=== PATIENT | female | born 1960 | race Caucasian/White ===

== ENCOUNTER 2017-01-26 08:08 | Inpatient (IN) | payer BC ==
[2017-01-24 16:26] LABS: ADD SCAN DIFF NO
[2017-01-24 16:29] LABS: BASOPHILS % 0.4 % (0.0-2.0); EOSINOPHILS # 0.3 10^3/ul (0.0-0.5); EOSINOPHILS % 3.4 % (0.0-7.0); HEMATOCRIT 41.2 % (37.0-47.0); LYMPHOCYTES % 40.4 % (15.0-51.0); MEAN CORPUSCULAR HEMOGLOBIN 31.5 pg (29.0-33.0); MEAN CORPUSCULAR VOLUME 92.6 fl (82.0-101.0); MONOCYTE # 0.5 10^3/ul (0.3-0.9); MONOCYTES % 6.1 % (0.0-11.0); NEUTROPHIL # 3.6 10^3/ul (1.6-7.5); NEUTROPHILS % 49.6 % (39.0-77.0); PLATELET COUNT 221 10^3/UL (140-415); RED BLOOD COUNT 4.45 10^6/ul (4.20-5.40); RED CELL DISTRIBUTION WIDTH 12.1 % (11.5-14.5); WHITE BLOOD COUNT 7.3 10^3/ul (4.8-10.8)
[2017-01-24 16:36] LABS: ADD UMIC YES; URINE BILIRUBIN (Dip) NEGATIVE (NEGATIVE); URINE BLOOD (Dip) TRACE (NEGATIVE); URINE COLOR LT. YELLOW (YELLOW); URINE GLUCOSE (Dip) NEGATIVE (NEGATIVE); URINE KETONES (Dip) NEGATIVE (NEGATIVE); URINE LEUKOCYTE ESTERASE (Dip) NEGATIVE (NEGATIVE); URINE NITRITE (Dip) NEGATIVE (NEGATIVE); URINE TOTAL PROTEIN (Dip) NEGATIVE (NEGATIVE); URINE UROBILINOGEN (Dip) 0.2 E.U./dL (0.1-1.0)
[2017-01-24 16:42] LABS: ALBUMIN 3.7 g/dl (3.3-4.9)
[2017-01-24 16:43] LABS: POTASSIUM 3.8 mmol/L (3.5-5.1)
[2017-01-24 16:45] LABS: BILIRUBIN,INDIRECT 0.1 mg/dl (0-1.1); BILIRUBIN,TOTAL 0.1 mg/dl (0.2-1.3); CREATININE 0.74 mg/dl (0.44-1.00)
[2017-01-24 16:46] LABS: ALBUMIN/GLOBULIN RATIO 1.12; CALCIUM 9.6 mg/dl (8.4-10.2)
[2017-01-24 16:49] LABS: INR 1.02; PROTIME 13.4 Sec (12.2-14.2)
[2017-01-24 16:50] LABS: PARTIAL THROMBOPLASTIN TIME 30.3 Sec (25.0-35.0)
[2017-01-24 17:04] LABS: BACTERIA,URINE FEW; SQUAMOUS EPITHELIAL CELL,UR FEW; URINE RBCS 0-2 /HPF (0)
[2017-01-24 17:16] LABS: CANCER ANTIGEN 125 77.6 U/ml (0.0-35.0)
[~2017-01-26] VITALS: Ht 167.6 cm; Wt 103.4 kg
[2017-01-26] VITALS (28 sets, daily range): BP systolic 103–189; BP diastolic 54–88; PULSE 16–96; RESP 8–31; Ht 167.6 cm; Wt 103.4 kg
[~2017-01-26 08:08] MED LIST: ROCURONIUM 50 MG INJ ONE
[2017-01-26] MEDS ORDERED: CEFAZOLIN 2 GM/50 ML (PMX) 50 ML IVPB ONE (08:30)
[2017-01-26] MEDS ORDERED: D5-NS + KCL 20 MEQ 1,000 ML IV SCH (08:30)
[2017-01-26] MEDS ORDERED: metroNIDAZOLE 500 MG/NS (PMX) 100 ML IVPB ONE ×2 (08:30→10:09)
--- NOTE | 2017-01-26 09:23 | HPN ---
Date/Time of Note Date/Time of Note DATE: 01/26/17 TIME: 09:23 Interval H&P Admission Note Pt. seen H&P reviewed: No system changes MOSES MAGUIRE MD Jan 26, 2017 09:23
[2017-01-26] MEDS ORDERED: LIDOCAINE 2% (SDV) 5 ML INJ ONE (10:09)
[2017-01-26] MEDS ORDERED: SUCCINYLCHOLINE CHLORIDE 100 MG/5 ML SYG IV ONE (10:09)
[2017-01-26] MEDS ORDERED: CEFAZOLIN 1 GM INJ ONE (10:09)
[2017-01-26] MEDS ORDERED: ROCURONIUM 50 MG INJ ONE (10:09)
[2017-01-26] MEDS ORDERED: MIDAZOLAM 1 MG/ML 2 ML INJ ONE (10:09)
[2017-01-26] MEDS ORDERED: PROPOFOL 20 ML ONE (10:09)
[2017-01-26] MEDS ORDERED: FENTAnyl 50 MCG/ML VIAL ONE (10:09)
[2017-01-26] MEDS ORDERED: FURO20TA3 PO (10:12)
[2017-01-26] MEDS ORDERED: TRAM-40 PO (10:12)
[2017-01-26] MEDS ORDERED: QUET100T32 PO (10:12)
[2017-01-26] MEDS ORDERED: OXYC-279 PO (10:12)
[2017-01-26] MEDS ORDERED: FLUO10CA17 PO (10:12)
[2017-01-26] MEDS ORDERED: LEVOFLOXACIN 500MG/D5W (PMX) 100 ML IVPB STA (11:01)
[2017-01-26] MEDS ORDERED: morphine SULFATE/PF (10 MG/10 ML) INJ ONE (11:08)
[2017-01-26] MEDS ORDERED: METHYLENE BLUE 10 MG/ML VIAL ONE (11:20)
--- NOTE | 2017-01-26 12:03 | HP ---
Date/Time of Note Date/Time of Note DATE: 01/26/17 TIME: 12:02 Assessment/Plan VTE Prophylaxis VTE Prophylaxis Intervention: SCD's Lines/Catheters IV Catheter Type (from Nrs): Peripheral IV HPI/ROS Admit Date/Time Admit Date/Time Jan 26, 2017 at 08:08 Hx of Present Illness Moses Maguire M.D. 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 EMB negative initially and repeat pending and MRI 14 cm mass and a CA-125 79 with enlarged nodes. Past Medical History: Surgical: GB and TL Medical: HTN Medications: 12/01/16 aspirin 81 mg tablet,delayed release 1 tablet by mouth as directed 12/01/16 fluoxetine 10 mg tablet 1 tablet by mouth as directed 12/01/16 furosemide 20 mg tablet 1 tablet by mouth as directed 12/01/16 gabapentin 300 mg capsule 1 capsule by mouth as directed 12/01/16 hydroxyzine HCl 50 mg tablet 1 tablet by mouth as directed 12/01/16 simvastatin 20 mg tablet 1 tablet by mouth as directed Flu yes, , Pneumococcal yes, Colonoscopy: never Allergies: No active allergies recorded Family History: Noncontributory Social History: Noncontributory Review of Systems: Negative except for above noted Physical Examination Vitals (12/01/2016): Weight 234, Height 65.25, BP 128/70, BMI 38.9. General: Alert. HEENT: Pupils are equal, round, reactive to light and accommodation. Neck: Supple with no masses of lymphadenopathy. Breast: Deferred due to recent examination and responsibility of primary care physician. Chest: Clear to auscultation and percussion with no rales, ronchi, or wheeze. Heart: Normal rhythm with no murmur. Abdomen: Non tender. No masses, ascites, or organomegaly. Pelvis: Uterus enlarged and globular with posterior mass Rectal: Confirmatory with pelvic exam. Neurological: Grossly intact Assessment: Probably adenomyosis with obesity vs sarcoma. Plan: TLH/BSO possible LND, possible open. All risks and benefits of this procedure have been discussed in detail with the patient, as well as alternative treatment strategies and their implications. The patient is aware that there is some possibility of a blood transfusion and its associated risks and benefits. She wishes to proceed and gives her informed consent. Moses Maguire M.D. PMH/Family/Social Social History Smoking Status: Never smoker Exam/Review of Systems Vital Signs Vitals Vital Signs Date Time Temp Pulse Resp B/P Pulse Ox O2 Delivery O2 Flow Rate FiO2 01/26/17 09:48 97.6 16 16 149/85 96 Labs Result Diagram: 01/24/17 1615 01/24/17 1615 Medications Medications Current Medications Potassium Chloride/Dextrose/ Sod Cl (D5-NS + KCl 20 Meq) 1,000 ml @ 100 mls/hr Q10H IV ; Start 01/26/17 at 08:30; Stop 01/26/17 at 18:29 MOSES MAGUIRE MD Jan 26, 2017 12:03
[2017-01-26] MEDS ORDERED: PHENYLephrine (100 MCG/ML) 5ML SYG ONE (12:04)
[2017-01-26] MEDS ORDERED: THROMBIN 5000 UNIT VIAL ONE (12:05)
[2017-01-26] MEDS ORDERED: METOCLOPRAMIDE 10 MG INJ ONE (12:20)
[2017-01-26] MEDS ORDERED: DEXAMETHASONE 4 MG/ML 1 ML INJ ONE (12:20)
[2017-01-26] MEDS ORDERED: ONDANSETRON 4 MG INJ ONE ×2 (12:20→16:12)
[2017-01-26] MEDS ORDERED: EPHEDrine SULFATE 50 MG/5 ML SYG ONE (12:28)
[2017-01-26] MEDS ORDERED: KETOROLAC 30 MG INJ IV PRN (13:30)
[2017-01-26] MEDS ORDERED: ONDANSETRON 4 MG INJ IV PRN ×3 (13:30→17:00)
[2017-01-26] MEDS ORDERED: DIPHENHYDRAMINE 50 MG INJ IV PRN ×2 (13:30→14:00)
[2017-01-26] MEDS ORDERED: NALOXONE (0.4 MG/ML) INJ IV PRN (13:30)
[2017-01-26] MEDS ORDERED: HYDROmorphONE 1 MG/ML SYG IV PRN ×2 (13:30)
[2017-01-26] MEDS ORDERED: NALBUPHINE HCL (10 MG/1 ML) INJ IV PRN (13:30)
[2017-01-26] MEDS ORDERED: HYDROCODONE/APAP (5/325) TAB PO PRN (13:30)
[2017-01-26] MEDS ORDERED: TRIMETHOBENZAMIDE 100 MG/ML VIAL IM PRN ×2 (13:30→14:00)
[2017-01-26] MEDS ORDERED: hydrALAzine 20 MG INJ ONE (13:37)
[2017-01-26] MEDS ORDERED: KETOROLAC 30 MG INJ IV ONE (14:00)
[2017-01-26] MEDS ORDERED: hydrALAzine 20 MG INJ IV PRN (14:00)
[2017-01-26] MEDS ORDERED: ALBUTEROL 0.5% (NEB) 2.5 MG/0.5 ML AMP INH PRN (14:00)
[2017-01-26] MEDS ORDERED: FENTAnyl 50 MCG/ML VIAL IV PRN (14:00)
[2017-01-26] MEDS ORDERED: IPRATROPIUM (NEB) 0.5 MG/2.5 ML AMP HHN PRN (14:00)
[2017-01-26] MEDS ORDERED: HYDROmorphONE (0.2 MG/ML) 10ML SYG IV PRN (14:00)
[2017-01-26] MEDS ORDERED: PROCHLORPERAZINE 10 MG INJ IV PRN (14:00)
[2017-01-26] MEDS ORDERED: LABETALOL HCL 20MG INJ IV PRN (14:00)
[2017-01-26] MEDS ORDERED: MEPERIDINE 25 MG INJ IV PRN (14:00)
[2017-01-26] MEDS ORDERED: KETAMINE 500 MG INJ ONE (16:09)
[2017-01-26] MEDS ORDERED: GLYCOPYRROLATE 1 MG INJ ONE (16:13)
[2017-01-26] MEDS ORDERED: NEOSTIGMINE 3 MG/3 ML SYRINGE ONE (16:13)
[2017-01-26] MEDS: HYDROmorphONE (0.2 MG/ML) 10ML SYG IV PRN ×5 (17:17→18:57)
[2017-01-26] MEDS ORDERED: LEVOFLOXACIN 500MG/D5W (PMX) 100 ML IVPB SCH (17:30)
[2017-01-26] MEDS: morphine 2 MG INJ IV PRN (21:22)
[2017-01-26] MEDS: D5-LR + KCL 20 MEQ 1,000 ML IV SCH (21:24)
[2017-01-26 23:19] LABS: ADD SCAN DIFF NO
[2017-01-26 23:23] LABS: ABNORMAL IP MESSAGE 1; BASOPHILS % 0.2 % (0.0-2.0); EOSINOPHILS % 0.1 % (0.0-7.0); HEMATOCRIT 36.5 % (37.0-47.0); HEMOGLOBIN 12.1 g/dl (12.0-16.0); LYMPHOCYTES # 0.6 10^3/ul (0.8-2.9); LYMPHOCYTES % 6.5 % (15.0-51.0); MEAN CORPUSCULAR HEMOGLOBIN 31.4 pg (29.0-33.0); MEAN CORPUSCULAR HGB CONC 33.2 g/dl (32.0-37.0); MEAN CORPUSCULAR VOLUME 94.8 fl (82.0-101.0); MEAN PLATELET VOLUME 10.3 fl (7.4-10.4); MONOCYTE # 0.5 10^3/ul (0.3-0.9); MONOCYTES % 5.9 % (0.0-11.0); NEUTROPHIL # 7.8 10^3/ul (1.6-7.5); PLATELET COUNT 195 10^3/UL (140-415); RED BLOOD COUNT 3.85 10^6/ul (4.20-5.40); RED CELL DISTRIBUTION WIDTH 12.3 % (11.5-14.5)
[2017-01-27 00:15] VITALS: BP 111/57; PULSE 83; RESP 18
[2017-01-27 04:48] LABS: ADD SCAN DIFF NO
[2017-01-27 04:51] LABS: BASOPHILS % 0.2 % (0.0-2.0); HEMATOCRIT 35.3 % (37.0-47.0); HEMOGLOBIN 11.6 g/dl (12.0-16.0); LYMPHOCYTES # 0.8 10^3/ul (0.8-2.9); LYMPHOCYTES % 8.7 % (15.0-51.0); MEAN CORPUSCULAR HEMOGLOBIN 31.4 pg (29.0-33.0); MEAN CORPUSCULAR HGB CONC 32.9 g/dl (32.0-37.0); MEAN CORPUSCULAR VOLUME 95.4 fl (82.0-101.0); MEAN PLATELET VOLUME 10.2 fl (7.4-10.4); MONOCYTE # 0.6 10^3/ul (0.3-0.9); MONOCYTES % 7.5 % (0.0-11.0); NEUTROPHIL # 7.2 10^3/ul (1.6-7.5); NEUTROPHILS % 83.5 % (39.0-77.0); PLATELET COUNT 194 10^3/UL (140-415); RED CELL DISTRIBUTION WIDTH 12.2 % (11.5-14.5); WHITE BLOOD COUNT 8.6 10^3/ul (4.8-10.8)
[2017-01-27 05:11] LABS: POTASSIUM 4.4 mmol/L (3.5-5.1)
[2017-01-27 05:14] LABS: CALCIUM 8.4 mg/dl (8.4-10.2); CREATININE 0.79 mg/dl (0.44-1.00)
[2017-01-27 06:08] VITALS: BP 110/58; PULSE 74; RESP 18
[2017-01-27 07:48] VITALS: BP 103/52; RESP 18
[2017-01-27] MEDS: D5-LR + KCL 20 MEQ 1,000 ML IV SCH ×3 (10:37→22:26)
[2017-01-27] MEDS ORDERED: LEVOFLOXACIN 500MG/D5W (PMX) 100 ML IVPB ONE (12:00)
[2017-01-27] MEDS: FUROSEMIDE 20 MG TAB PO SCH (15:06)
[2017-01-27] MEDS: FLUOXETINE 10 MG CAP PO SCH (15:06)
[2017-01-27] MEDS: HYDROCODONE/APAP (5/325) TAB PO PRN (15:10)
[2017-01-27 16:40] LABS: ADD SCAN DIFF NO
[2017-01-27 16:44] LABS: BASOPHILS % 0.1 % (0.0-2.0); EOSINOPHILS % 0.3 % (0.0-7.0); HEMATOCRIT 33.1 % (37.0-47.0); HEMOGLOBIN 11.1 g/dl (12.0-16.0); LYMPHOCYTES # 1.9 10^3/ul (0.8-2.9); LYMPHOCYTES % 22.2 % (15.0-51.0); MEAN CORPUSCULAR HEMOGLOBIN 31.4 pg (29.0-33.0); MEAN CORPUSCULAR HGB CONC 33.5 g/dl (32.0-37.0); MEAN CORPUSCULAR VOLUME 93.8 fl (82.0-101.0); MEAN PLATELET VOLUME 9.8 fl (7.4-10.4); MONOCYTE # 0.6 10^3/ul (0.3-0.9); MONOCYTES % 7.5 % (0.0-11.0); NEUTROPHILS % 69.4 % (39.0-77.0); PLATELET COUNT 168 10^3/UL (140-415); RED BLOOD COUNT 3.53 10^6/ul (4.20-5.40); RED CELL DISTRIBUTION WIDTH 12.4 % (11.5-14.5); WHITE BLOOD COUNT 8.6 10^3/ul (4.8-10.8)
[2017-01-27] MEDS: QUETIAPINE 100 MG TAB PO SCH (20:35)
--- NOTE | 2017-01-27 21:58 | OPR ---
Date/Time of Note Date/Time of Note DATE: 01/27/17 TIME: 21:57 Operative Report Free Text/Dictation OPERATIVE REPORT [facility] Name: Debra Umana Medical Date: 01/26/17 Preoperative Diagnosis: 1- Large pelvic mass 2- Elevated CA-125 3- Persistent post-menopausal bleeding Postoperative Diagnosis: 1-Endometrial cancer with final pathology pending 2- Adnexal fibroma; pathology pending 3- Ureteral stricture Procedures: 1- Total laparoscopic hysterectomy with bilateral salpingoophorectomy 2- Bilateral ureteral dissection with repositioning 3- Laparoscopic pelvic and aortic lymph node dissection Surgeon: Dr. 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 The sentinal pelvic and LND was performed in lieu of the frozen section not being more that Name: Debra U[facility] 80% reliable in determining presence of cancer; therefore selective staging is performed to determine postoperative management and avoid re-operation unless there is a significant contraindication. Were ovarian cancer found additional staging wound be completed. Intraoperative Findings and Summary of Procedure: After placing the Trocars and exploration we noted a slightly enlarged uterus with hypervascularity and a massive irregular solid right adnexal mass with significant adhesions of the adnexia to the sidewalls with the right adnexia densely adherent to the sidewall. The TLH/BSO was then performed without incident but required a ureteral dissection due to anatomic issues of the adnexia adherent to the sidewalls after which the frozen section revealed endometrial cancer and a laparoscopic LND was performed with a finding of grossly negative nodes pathology pending and on frozen section a benign adnexal mass was noted consistent with a fibroma. Findings and Procedure: After being prepped and draped in the usual manner an EEA sizer and balloon was placed against the cervix. A 5 millimeter trocar was then placed periumbilically without incident. Subsequently, we insufflated and placed two 5 - millimeter trocars laterally and a 12 millimeter trocar suprapubically, as well as an additional 5-mm trocar cephlad to the umbilicus. At this time multiple pelvic adhesions were lysed with sharp dissection and the Omni if not adjacent to serosa. Subsequently we explored and noted a slightly enlarged uterus with hypervascularity and a massive irregular solid right adnexal mass with significant adhesions of the adnexia to the sidewalls with the right adnexia densely adherent to the sidewall, with the adnexia adherent to the sidewalls due to apparent inflammation and old scar tissue. Initially the right round ligament was cauterized and transected with the Thunderbeat and the retroperitoneal space further opened parallel to the IP ligament an laterally with the same devise. The right ureter was identified and Name: [facility]bra [facility] due to the aforementioned distortion from adherent adnexia was dissected laterally with the Omni and the endo-dissector throughout the length of the ureter and lateralized. After lateralizing the ureter the uterine artery was identified and clipped lateral to the ureter. Hence, a space was developed the broad ligament and the right IP ligament was cauterized and transected with a Thunderbeat after which the uterus was retracted medially and the bladder flap was partly developed with the Thunderbeat forceps and the Omni. We then used a 10-mm tenaculum placed through the 12-mm suprapubic trocar to manipulate the uterus and with the EEA sizer the uterus was retracted and left round ligament was cauterized and transected with the Thunderbeat and the retroperitoneal space further opened parallel to the IP ligament an laterally with the same devise. The left ureter was identified and due to the aforementioned distortion was dissected laterally with the Omni and the endo-dissector as done contralaterally. After lateralizing the ureter the uterine artery was identified and clipped lateral to the ureter. Subsequently, a space was developed in the broad ligament and the left IP ligament was cauterized and transected with a Thunderbeat after which the uterus was retracted medially, allowing development or the bladder flap uneventfully with the Omni and blunt dissection. Subsequently, the right uterine artery was transected with a Thunderbeat perpendicular to the distal lower uterine segment and the Cardinal ligament and utero-sacral ligament were both transected with a Thunderbeat and Omni parallel to the lower uterine segment and cervix. An identical series of steps were taken on the left side. The anterior and posterior colpotomies were accomplished with a Thunderbeat anteriorly and posteriorly, and continued around the sides with the Thunderbeat and Omni as the right adnexal mass was removed from the uterus with the Thunderbeat to enable the uterus and left adnexia to be removed through the vagina uneventfully as the right adnexia would not fit. The vagina was closed with interrupted 0- vicryl and continuous 2-0 v-lock suture. At this time the frozen section returned grade 1 uncertain depth of invasion and the pelvic and aortic LND were completed after confirming hemostasis. Initially a fan retractor was used for exposure and secured to the Narendra arm and lymph node tissue adjacent to the right pelvic vessels were removed Name: [facility] with sharp and blunt dissection, using the Gyrus bipolar cutting forceps or Gyrus bipolar Omni for hemostasis and lymphostasis. The nesha tissue was grasped and subsequently placed under tractions with the Omni and the Gyrus bipolar cutting forceps then being used for the hemostasis and lymphostasis in the process of removal. The dissection was continued to include any nesha tissue in the obturator space wth the nerve visualized and undamaged an adjacent to the common iliac vessels. The fan retractors were adjusted in that a suprapubically placed fan retracted the broad ligament and ureter with ileum while the right lateral trocar was used for a fan to retract the cecum and ascending colon allowing any selective nesha tissue adjacent to the vena cava, as well as aorto-caval nodes to be removed using identical technique. B[place] Helper vessels were addressed with the Gyrus bipolar cutting forceps or Gyrus bipolar Omni. At this time we placed the fan retractors for contralateral exposure. Subsequently, node tissue adjacent to the left pelvic vessels were removed with sharp and blunt dissection, the Gyrus bipolar cutting forceps or Gyrus bipolar Omni for hemostasis and lymphostasis, with a technique identical to the right side. The dissection was continued to include nesha tissue adjacent to pelvic vasculature and obturator nodes and the common iliac vessels. Subsequently, the fan retractors were adjusted and nesha tissue adjacent to the aorta were dissected using similar technique. The 12- millimeter trocar site was minimally extended to 4-6 cm midline to a minilaparotomy with sharp dissection and an electrocautery and adnexia was removed with a negative frozen section obtained consistent with a Fibroma. The incision was partly closed with interrupted 0- Vicryl suture, after which the 12 -millimeter trocar was reinserted. After irrigating and assuring hemostasis the 12 millimeter trocars were removed and the fascia was closed with 0-vicryl using an endo-close devise. The gas was removed and the skin of all sites then closed with interrupted 4-0 Plain Gut. The EBL was 150cc and the patient tolerated the procedure well and left the OR in good condition. Brian Maguire M.D. Procedure Date: Jan 27, 2017 BRIAN MAGUIRE MD Jan 27, 2017 21:57
--- NOTE | 2017-01-27 22:10 | PN ---
Date/Time of Note Date/Time of Note DATE: 01/27/17 TIME: 22:06 Assessment/Plan VTE Prophylaxis VTE Prophylaxis Intervention: SCD's Lines/Catheters IV Catheter Type (from [facility]): Saline Lock Urinary Cath still in place: Yes Assessment/Plan Chief Complaint/Hosp Course pelvic mass, endometrial cancer Problems: Assessment/Plan A- as above with presumed epidural issue P- Hospitalist, adv diet, observe Subjective 24 Hr Interval Summary Free Text/Dictation S-c/o lack of sensation lower ext, although some return. + flatus and OOB O- Resp- clear CVS- NSR Abd- was bleedng but now clean Ext NT minimal edema A- as above with presumed epidural issue P- Hospitalist, adv diet, observe Exam/Review of Systems Vital Signs Vitals Vital Signs Date Time Temp Pulse Resp B/P Pulse Ox O2 Delivery O2 Flow Rate FiO2 01/27/17 07:48 98.1 76 18 103/52 91 01/27/17 06:08 Nasal Cannula 2.0 Intake and Output 01/26/17 01/26/17 01/27/17 15:00 23:00 07:00 Intake Total 2250 ml 1600 ml Output Total 130 ml 600 ml Balance 2120 ml 1000 ml Results Result Diagram: 01/27/17 1635 01/27/17 0410 Results 24 hrs Laboratory Tests Test 01/26/17 22:30 01/27/17 04:10 01/27/17 16:35 Basophils # 0.0 0.0 0.0 Basophils % 0.2 0.2 0.1 Eosinophils # 0.0 0.0 0.0 Eosinophils % 0.1 0.0 0.3 Hematocrit 36.5 L 35.3 L 33.1 L Hemoglobin 12.1 11.6 L 11.1 L Lymphocytes # 0.6 L 0.8 1.9 Lymphocytes % 6.5 L 8.7 L 22.2 Mean Corpuscular Hemoglobin 31.4 31.4 31.4 Mean Corpuscular Hemoglobin Concent 33.2 32.9 33.5 Mean Corpuscular Volume 94.8 95.4 93.8 Mean Platelet Volume 10.3 10.2 9.8 Monocytes # 0.5 0.6 0.6 Monocytes % 5.9 7.5 7.5 Neutrophils # 7.8 H 7.2 6.0 Neutrophils % 87.0 H 83.5 H 69.4 Nucleated Red Blood Cells # 0.0 0.0 0.0 Nucleated Red Blood Cells % 0.0 0.0 0.0 Platelet Count 195 194 168 Red Blood Count 3.85 L 3.70 L 3.53 L Red Cell Distribution Width 12.3 12.2 12.4 White Blood Count 9.0 # 8.6 8.6 Anion Gap 13 Blood Urea Nitrogen 24 H Calcium Level 8.4 Carbon Dioxide Level 29 Chloride Level 105 Creatinine 0.79 Glucose Level 141 Potassium Level 4.4 Sodium Level 143 Medications Medications Current Medications Potassium Cl/ Dextrose/Lact Ringer's (D5-Lr + KCl 20 Meq) 1,000 ml @ 100 mls/ hr Q10H IV Last administered on 01/27/17 10:37; Admin Dose 100 MLS/HR; Start at 17:00 Ondansetron HCl (Zofran Inj) 4 mg Q6H PRN IV NAUSEA AND/OR VOMITING; Start 01/26 at 17:00 Acetaminophen/ Hydrocodone Bitart ([place] (5/325)) 1 tab Q6H PRN PO PAIN Last administered on 01/27/17 15:10; Admin Dose 1 TAB; Start 01/26/17 at 17:00 Morphine Sulfate (morphine) 2 mg Q3H PRN IV PAIN Last administered on 01/26/17 21:22; Admin Dose 2 MG; Start 01/26/17 at 17:00 Fluoxetine HCl (Prozac) 10 mg DAILY PO Last administered on 01/27/17 15:06; Admin Dose 10 MG; Start 01/27/17 at 13:30 Furosemide (Lasix) 20 mg DAILY PO Last administered on 01/27/17 15:06; Admin Dose 20 MG; Start 01/27/17 at 13:30 Quetiapine Fumarate (Seroquel) 100 mg HS PO ; Start 01/27/17 at 21:00 MOSES MAGUIRE MD Jan 27, 2017 22:10
[2017-01-28] MEDS: morphine 2 MG INJ IV PRN ×5 (03:28→21:31)
[2017-01-28 05:08] LABS: ADD SCAN DIFF NO
[2017-01-28 05:19] LABS: BASOPHILS % 0.3 % (0.0-2.0); EOSINOPHILS % 0.4 % (0.0-7.0); HEMATOCRIT 32.8 % (37.0-47.0); HEMOGLOBIN 10.7 g/dl (12.0-16.0); LYMPHOCYTES # 1.3 10^3/ul (0.8-2.9); LYMPHOCYTES % 17.6 % (15.0-51.0); MEAN CORPUSCULAR HEMOGLOBIN 31.1 pg (29.0-33.0); MEAN CORPUSCULAR HGB CONC 32.6 g/dl (32.0-37.0); MEAN CORPUSCULAR VOLUME 95.3 fl (82.0-101.0); MEAN PLATELET VOLUME 10.8 fl (7.4-10.4); MONOCYTE # 0.6 10^3/ul (0.3-0.9); MONOCYTES % 8.5 % (0.0-11.0); NEUTROPHIL # 5.2 10^3/ul (1.6-7.5); NEUTROPHILS % 72.8 % (39.0-77.0); PLATELET COUNT 171 10^3/UL (140-415); RED BLOOD COUNT 3.44 10^6/ul (4.20-5.40); RED CELL DISTRIBUTION WIDTH 12.5 % (11.5-14.5); WHITE BLOOD COUNT 7.1 10^3/ul (4.8-10.8)
[2017-01-28 05:52] LABS: POTASSIUM 3.1 mmol/L (3.5-5.1)
[2017-01-28 05:54] LABS: CREATININE 0.68 mg/dl (0.44-1.00)
[2017-01-28 05:55] LABS: CALCIUM 8.2 mg/dl (8.4-10.2)
--- NOTE | 2017-01-28 08:06 | OPPN ---
Date/Time of Note Date/Time of Note DATE: 01/28/17 TIME: 07:44 Post-Anesthesia Notes Post-Anesthesia Note Last documented vital signs 98.1 P76 RR18 BP 103/52, 96% on 2L NC Activity: WNL Respiratory function: WNL Cardiovascular function: WNL Mental status: Baseline Pain reasonably controlled: Yes Hydration appropriate: Yes Nausea/Vomiting absent: Yes Pt recovered from regional: Yes Comments Pt is POD 2 s/p laparoscopic total hysterectomy, BSO, mini laparotomy, paraaortic LN dissection. Pt did not have an epidural, had a spinal, attempt x1 with 3.5 in 25 G pencan, no difficulty on placement, no paresthesia. Pt was moving all extremities s/p surgery on POD 0. I was notified that patient was c/ o decreased sensation in BLE, however amble to ambulate and had good peripheral pulses with improved sensation last night. Patient was seen and examined at bedside. Patient is able to move all extremities, was asked to close her eyes, and responded to stimulation throughout. Patient states that her feet fall asleep after 5 min being propped up and that she could never do arshad's or be in lithotomy when she delivered her children. As her legs were placed in lithotomy for the procedure and with her habitus and history and PVD, symptoms likely due to positioning and are resolving on their own. Pt also c/o CL[place]ON, no photophobia, no tinnitus, no positional headache, tolerating pos, ambulating with RN. Discussed exam and findings with patient and answered all questions and addressed concerns. ZAIDA FERRIS MD Jan 28, 2017 08:06
[2017-01-28 08:08] VITALS: BP 141/70; RESP 18
[2017-01-28] MEDS: D5-LR + KCL 20 MEQ 1,000 ML IV SCH ×2 (09:00→18:06)
[2017-01-28] MEDS: FUROSEMIDE 20 MG TAB PO SCH (09:10)
[2017-01-28] MEDS: FLUOXETINE 10 MG CAP PO SCH (09:10)
[2017-01-28] MEDS ORDERED: POTASSIUM CHLORIDE (SR) 20 MEQ TAB PO STA (10:31)
[2017-01-28] MEDS ORDERED: ACETAMINOPHEN 325 MG TAB PO PRN (11:00)
[2017-01-28] MEDS: HYDROCODONE/APAP (5/325) TAB PO PRN ×2 (12:20→20:02)
[2017-01-28 19:00] VITALS: BP 142/68; RESP 19
[2017-01-28] MEDS: QUETIAPINE 100 MG TAB PO SCH (20:02)
--- NOTE | 2017-01-28 20:30 | PN ---
Date/Time of Note Date/Time of Note DATE: 01/28/17 TIME: 20:27 Assessment/Plan VTE Prophylaxis VTE Prophylaxis Intervention: SCD's Lines/Catheters IV [facility]from [facility] Saline Lock Urinary Cath still in place: No Assessment/Plan Chief Complaint/Hosp Course pelvic mass, endometrial cancer Problems: Subjective 24 Hr Interval Summary Free Text/Dictation S-now has sensation lower ext, although claims minimal OOB and. no flatus O- Resp- clear CVS- NSR Abd- was bleedng but now clean Ext NT minimal edema A- improved neurologic fct but probable gas pains P- Hospitalist called , Gera flush, OOB Exam/Review of Systems Vital Signs Vitals Vital Signs Date Time Temp Pulse Resp B/P Pulse Ox O2 Delivery O2 Flow Rate FiO2 01/28/17 19:00 99.8 93 19 142/68 94 01/27/17 06:08 Nasal Cannula 2.0 Intake and Output 01/27/17 01/27/17 01/28/17 15:00 23:00 07:00 Intake Total 140 ml 700 ml 960 ml Output Total 600 ml 220 ml Balance 140 ml 100 ml 740 ml Results Result Diagram: 01/28/17 0430 01/28/17 0430 Results 24 hrs Laboratory Tests Test 01/28/17 04:30 Anion Gap 10 Basophils # 0.0 Basophils % 0.3 Blood Urea Nitrogen 15 # Calcium Level 8.2 L Carbon Dioxide Level 30 Chloride Level 107 Creatinine 0.68 Eosinophils # 0.0 Eosinophils % 0.4 Glucose Level 114 Hematocrit 32.8 L Hemoglobin 10.7 L Lymphocytes # 1.3 Lymphocytes % 17.6 Mean Corpuscular Hemoglobin 31.1 Mean Corpuscular Hemoglobin Concent 32.6 Mean Corpuscular Volume 95.3 Mean Platelet Volume 10.8 H Monocytes # 0.6 Monocytes % 8.5 Neutrophils # 5.2 Neutrophils % 72.8 Nucleated Red Blood Cells # 0.0 Nucleated Red Blood Cells % 0.0 Platelet Count 171 Potassium Level 3.1 L Red Blood Count 3.44 L Red Cell Distribution Width 12.5 Sodium Level 144 White Blood Count 7.1 Medications Medications Current Medications Potassium Cl/ Dextrose/Lact Ringer's (D5-Lr + KCl 20 Meq) 1,000 ml @ 100 mls/ hr Q10H IV Last administered on 01/27/17t 10:37; Admin Dose 100 MLS/HR; Start at 17:00 Ondansetron HCl (Zofran Inj) 4 mg Q6H PRN IV NAUSEA AND/OR VOMITING Last administered on 01/28/17 03:26; Admin Dose 4 MG; Start 01/26/17 at 17:00 Acetaminophen/ Hydrocodone Bitart ([place] (5/325)) 1 tab Q6H PRN PO PAIN Last administered on 01/28/17 20:02; Admin Dose 1 TAB; Start 01/26/17 at 17:00 Morphine Sulfate (morphine) 2 mg Q3H PRN IV PAIN Last administered on 01/28/17 17:18; Admin Dose 2 MG; Start 01/26/17 at 17:00 Fluoxetine HCl (Prozac) 10 mg DAILY PO Last administered on 01/28/17 09:10; Admin Dose 10 MG; Start 01/27/17 at 13:30 Furosemide (Lasix) 20 mg DAILY PO Last administered on 01/28/17 09:10; Admin Dose 20 MG; Start 01/27/17 at 13:30 Quetiapine Fumarate (Seroquel) 100 mg HS PO Last administered on 01/28/17 20:02 ; Admin Dose 100 MG; Start 01/27/17 at 21:00 Acetaminophen (Tylenol Tab) 650 mg Q6H PRN PO PAIN AND OR ELEVATED TEMP; Start 01/28/17 at 11:00 MOSES MAGUIRE MD Jan 28, 2017 20:30
[2017-01-29] MEDS: D5-LR + KCL 20 MEQ 1,000 ML IV SCH (00:20)
[2017-01-29 06:02] LABS: ADD SCAN DIFF NO
[2017-01-29 06:21] LABS: BASOPHILS % 0.3 % (0.0-2.0); EOSINOPHILS # 0.2 10^3/ul (0.0-0.5); EOSINOPHILS % 2.3 % (0.0-7.0); HEMATOCRIT 32.9 % (37.0-47.0); HEMOGLOBIN 10.7 g/dl (12.0-16.0); LYMPHOCYTES # 2.1 10^3/ul (0.8-2.9); LYMPHOCYTES % 31.9 % (15.0-51.0); MEAN CORPUSCULAR HEMOGLOBIN 31.3 pg (29.0-33.0); MEAN CORPUSCULAR HGB CONC 32.5 g/dl (32.0-37.0); MEAN CORPUSCULAR VOLUME 96.2 fl (82.0-101.0); MONOCYTE # 0.5 10^3/ul (0.3-0.9); MONOCYTES % 7.5 % (0.0-11.0); NEUTROPHIL # 3.8 10^3/ul (1.6-7.5); NEUTROPHILS % 57.7 % (39.0-77.0); PLATELET COUNT 174 10^3/UL (140-415); RED BLOOD COUNT 3.42 10^6/ul (4.20-5.40); RED CELL DISTRIBUTION WIDTH 12.3 % (11.5-14.5); WHITE BLOOD COUNT 6.6 10^3/ul (4.8-10.8)
[2017-01-29 06:57] LABS: POTASSIUM 3.5 mmol/L (3.5-5.1)
[2017-01-29 07:00] LABS: CREATININE 0.59 mg/dl (0.44-1.00)
[2017-01-29 07:01] LABS: CALCIUM 8.4 mg/dl (8.4-10.2)
[2017-01-29 07:45] VITALS: BP 122/65; RESP 16
[2017-01-29] MEDS: morphine 2 MG INJ IV PRN ×2 (08:50→18:31)
[2017-01-29] MEDS: FLUOXETINE 10 MG CAP PO SCH (08:50)
[2017-01-29] MEDS: FUROSEMIDE 20 MG TAB PO SCH (08:50)
[2017-01-29] MEDS: HYDROCODONE/APAP (5/325) TAB PO PRN (17:15)
--- NOTE | 2017-01-29 18:05 | PN ---
Date/Time of Note Date/Time of Note DATE: 01/29/17 TIME: 18:03 Assessment/Plan VTE Prophylaxis VTE Prophylaxis Intervention: SCD's Lines/Catheters IV Catheter Type (from Nrs): Peripheral IV Urinary Cath still in place: No Assessment/Plan Chief Complaint/Hosp Course pelvic mass, endometrial cancer Problems: Assessment/Plan A- improved neurologic fct and less gas pains P- adv diet and hope to d/c 1-2 days but she is concerned about the 23 steps to get to her house Subjective 24 Hr Interval Summary Free Text/Dictation S-now has OK sensation lower ext, although claims minimal OOB and. + flatus O- Resp- clear CVS- NSR Abd- was bleedng but now clean Ext NT minimal edema A- improved neurologic fct and less gas pains P- adv diet and hope to d/c 1-2 days but she is concerned about the 23 steps to get to her house Exam/Review of Systems Vital Signs Vitals Vital Signs Date Time Temp Pulse Resp B/P Pulse Ox O2 Delivery O2 Flow Rate FiO2 01/29/17 07:45 98.0 77 16 122/65 93 01/27/17 06:08 Nasal Cannula 2.0 Intake and Output 01/28/17 01/28/17 01/29/17 15:00 23:00 07:00 Intake Total 480 ml 660 ml Output Total 300 ml 850 ml Balance 180 ml -190 ml Results Result Diagram: 01/29/17 0421 01/29/17 0421 Results 24 hrs Laboratory Tests Test 01/29/17 04:21 Anion Gap 11 Basophils # 0.0 Basophils % 0.3 Blood Urea Nitrogen 15 Calcium Level 8.4 Carbon Dioxide Level 29 Chloride Level 108 Creatinine 0.59 Eosinophils # 0.2 Eosinophils % 2.3 Glucose Level 93 Hematocrit 32.9 L Hemoglobin 10.7 L Lymphocytes # 2.1 Lymphocytes % 31.9 Mean Corpuscular Hemoglobin 31.3 Mean Corpuscular Hemoglobin Concent 32.5 Mean Corpuscular Volume 96.2 Mean Platelet Volume 11.0 H Monocytes # 0.5 Monocytes % 7.5 Neutrophils # 3.8 Neutrophils % 57.7 Nucleated Red Blood Cells # 0.0 Nucleated Red Blood Cells % 0.0 Platelet Count 174 Potassium Level 3.5 Red Blood Count 3.42 L Red Cell Distribution Width 12.3 Sodium Level 144 White Blood Count 6.6 Medications Medications Current Medications Potassium Cl/ Dextrose/Lact Ringer's (D5-Lr + KCl 20 Meq) 1,000 ml @ 50 mls/hr Q20H IV Last administered on 01/29/17 00:20; Admin Dose 50 MLS/HR; Start at 17:00 Ondansetron HCl (Zofran Inj) 4 mg Q6H PRN IV NAUSEA AND/OR VOMITING Last administered on 01/28/17 03:26; Admin Dose 4 MG; Start 01/26/17 at 17:00 Acetaminophen/ Hydrocodone Bitart ([place] (5/325)) 1 tab Q6H PRN PO PAIN Last administered on 01/29/17 17:15; Admin Dose 1 TAB; Start 01/26/17 at 17:00 Fluoxetine HCl (Prozac) 10 mg DAILY PO Last administered on 01/29/17 08:50; Admin Dose 10 MG; Start 01/27/17 at 13:30 Furosemide (Lasix) 20 mg DAILY PO Last administered on 01/29/17 08:50; Admin Dose 20 MG; Start 01/27/17 at 13:30 Quetiapine Fumarate (Seroquel) 100 mg HS PO Last administered on 01/28/17 20:02 ; Admin Dose 100 MG; Start 01/27/17 at 21:00 Acetaminophen (Tylenol Tab) 650 mg Q6H PRN PO PAIN AND OR ELEVATED TEMP; Start 01/28/17 at 11:00 Tramadol HCl (Ultram) 50 mg Q6H PRN PO PAIN LEVEL 4-6; Start 01/28/17 at 20:30 Morphine Sulfate (morphine) 2 mg Q6 PRN IV PAIN Last administered on 01/29/17 08:50; Admin Dose 2 MG; Start 01/28/17 at 21:00 MOSES MAGUIRE MD Jan 29, 2017 18:05
[2017-01-29 20:40] VITALS: BP 115/64; RESP 16
[2017-01-29] MEDS: traMADol 50 MG TAB PO PRN (21:03)
[2017-01-29] MEDS: QUETIAPINE 100 MG TAB PO SCH (21:38)
[2017-01-30 05:17] LABS: ADD SCAN DIFF NO
[2017-01-30 05:40] LABS: BASOPHILS % 0.5 % (0.0-2.0); EOSINOPHILS # 0.3 10^3/ul (0.0-0.5); EOSINOPHILS % 4.4 % (0.0-7.0); HEMATOCRIT 32.6 % (37.0-47.0); HEMOGLOBIN 10.8 g/dl (12.0-16.0); LYMPHOCYTES # 1.8 10^3/ul (0.8-2.9); LYMPHOCYTES % 30.3 % (15.0-51.0); MEAN CORPUSCULAR HEMOGLOBIN 31.4 pg (29.0-33.0); MEAN CORPUSCULAR HGB CONC 33.1 g/dl (32.0-37.0); MEAN CORPUSCULAR VOLUME 94.8 fl (82.0-101.0); MEAN PLATELET VOLUME 10.6 fl (7.4-10.4); MONOCYTE # 0.5 10^3/ul (0.3-0.9); MONOCYTES % 8.2 % (0.0-11.0); NEUTROPHIL # 3.4 10^3/ul (1.6-7.5); NEUTROPHILS % 56.4 % (39.0-77.0); PLATELET COUNT 183 10^3/UL (140-415); RED BLOOD COUNT 3.44 10^6/ul (4.20-5.40); RED CELL DISTRIBUTION WIDTH 12.3 % (11.5-14.5); WHITE BLOOD COUNT 6.1 10^3/ul (4.8-10.8)
[2017-01-30 05:46] LABS: POTASSIUM 3.3 mmol/L (3.5-5.1)
[2017-01-30 05:48] LABS: CREATININE 0.58 mg/dl (0.44-1.00)
[2017-01-30 05:49] LABS: CALCIUM 8.6 mg/dl (8.4-10.2)
[2017-01-30 08:22] VITALS: BP 145/70; RESP 18
[2017-01-30] MEDS: FLUOXETINE 10 MG CAP PO SCH (09:13)
[2017-01-30] MEDS: FUROSEMIDE 20 MG TAB PO SCH (09:15)
[2017-01-30] MEDS: HYDROCODONE/APAP (5/325) TAB PO PRN ×2 (09:16→18:34)
[2017-01-30] MEDS: D5-LR + KCL 20 MEQ 1,000 ML IV SCH (09:26)
[2017-01-30] MEDS: morphine 2 MG INJ IV PRN (13:40)
[2017-01-30 19:11] VITALS: BP 147/76; RESP 18
[2017-01-30] MEDS: QUETIAPINE 100 MG TAB PO SCH (21:00)
[2017-01-30] MEDS: traMADol 50 MG TAB PO PRN (21:19)
--- NOTE | 2017-01-30 21:26 | PN ---
Date/Time of Note Date/Time of Note DATE: 01/30/17 TIME: 21:24 Assessment/Plan VTE Prophylaxis VTE Prophylaxis Intervention: SCD's Lines/Catheters IV [facility] ([facility] Saline Lock Urinary Cath still in place: No Assessment/Plan Chief Complaint/Hosp Course pelvic mass, endometrial cancer Problems: Assessment/Plan A- improved neurologic fct and less pains P-hope to d/c 1-2 days but she is concerned about the 23 steps to get to her house- PT ordered Subjective 24 Hr Interval Summary Free Text/Dictation S-More OOB and + flatus. O- Resp- clear CVS- NSR Abd- NT clean Ext NT minimal edema A- improved neurologic fct and less pains P-hope to d/c 1-2 days but she is concerned about the 23 steps to get to her house- PT ordered Exam/Review of Systems Vital Signs Vitals Vital Signs Date Time Temp Pulse Resp B/P Pulse Ox O2 Delivery O2 Flow Rate FiO2 01/30/17 19:11 98.6 83 18 147/76 95 01/27/17 06:08 Nasal Cannula 2.0 Intake and Output 01/29/17 01/29/17 01/30/17 15:00 23:00 07:00 Intake Total 500 ml 340 ml Balance 500 ml 340 ml Results Result Diagram: 01/30/17 0425 01/30/17 0425 Results 24 hrs Laboratory Tests Test 01/30/17 04:25 Anion Gap 10 Basophils # 0.0 Basophils % 0.5 Blood Urea Nitrogen 13 Calcium Level 8.6 Carbon Dioxide Level 31 Chloride Level 104 Creatinine 0.58 Eosinophils # 0.3 Eosinophils % 4.4 Glucose Level 95 Hematocrit 32.6 L Hemoglobin 10.8 L Lymphocytes # 1.8 Lymphocytes % 30.3 Mean Corpuscular Hemoglobin 31.4 Mean Corpuscular Hemoglobin Concent 33.1 Mean Corpuscular Volume 94.8 Mean Platelet Volume 10.6 H Monocytes # 0.5 Monocytes % 8.2 Neutrophils # 3.4 Neutrophils % 56.4 Nucleated Red Blood Cells # 0.0 Nucleated Red Blood Cells % 0.0 Platelet Count 183 Potassium Level 3.3 L Red Blood Count 3.44 L Red Cell Distribution Width 12.3 Sodium Level 142 White Blood Count 6.1 Medications Medications Current Medications Potassium Cl/ Dextrose/Lact Ringer's (D5-Lr + KCl 20 Meq) 1,000 ml @ 50 mls/hr Q20H IV Last administered on 01/29/17 00:20; Admin Dose 50 MLS/HR; Start at 17:00 Ondansetron HCl (Zofran Inj) 4 mg Q6H PRN IV NAUSEA AND/OR VOMITING Last administered on 01/28/17 03:26; Admin Dose 4 MG; Start 01/26/17 at 17:00 Acetaminophen/ Hydrocodone Bitart ([place] (5/325)) 1 tab Q6H PRN PO PAIN Last administered on 01/30/17 18:34; Admin Dose 1 TAB; Start 01/26/17 at 17:00 Fluoxetine HCl (Prozac) 10 mg DAILY PO Last administered on 01/30/17 09:13; Admin Dose 10 MG; Start 01/27/17 at 13:30 Furosemide (Lasix) 20 mg DAILY PO Last administered on 01/30/17 09:15; Admin Dose 20 MG; Start 01/27/17 at 13:30 Quetiapine Fumarate (Seroquel) 100 mg HS PO Last administered on 01/29/17 21:38 ; Admin Dose 100 MG; Start 01/27/17 at 21:00 Acetaminophen (Tylenol Tab) 650 mg Q6H PRN PO PAIN AND OR ELEVATED TEMP; Start 01/28/17 at 11:00 Tramadol HCl (Ultram) 50 mg Q6H PRN PO PAIN LEVEL 4-6 Last administered on 21:19; Admin Dose 50 MG; Start 01/28/17 at 20:30 Morphine Sulfate (morphine) 2 mg Q6 PRN IV PAIN Last administered on 01/30/17 13:40; Admin Dose 2 MG; Start 01/28/17 at 21:00 MOSES MAGUIRE MD Jan 30, 2017 21:26
[2017-01-30] MEDS ORDERED: morphine 2 MG INJ IV PRN (22:00)
[2017-01-31] MEDS: HYDROCODONE/APAP (5/325) TAB PO PRN ×3 (01:02→21:17)
[2017-01-31 04:54] LABS: ADD SCAN DIFF NO
[2017-01-31 05:09] LABS: BASOPHILS % 0.6 % (0.0-2.0); EOSINOPHILS # 0.3 10^3/ul (0.0-0.5); EOSINOPHILS % 4.2 % (0.0-7.0); HEMATOCRIT 34.2 % (37.0-47.0); HEMOGLOBIN 11.3 g/dl (12.0-16.0); LYMPHOCYTES # 2.3 10^3/ul (0.8-2.9); MEAN PLATELET VOLUME 10.5 fl (7.4-10.4); MONOCYTE # 0.6 10^3/ul (0.3-0.9); MONOCYTES % 8.5 % (0.0-11.0); NEUTROPHIL # 3.3 10^3/ul (1.6-7.5); NEUTROPHILS % 51.5 % (39.0-77.0); PLATELET COUNT 199 10^3/UL (140-415); RED BLOOD COUNT 3.64 10^6/ul (4.20-5.40); RED CELL DISTRIBUTION WIDTH 12.2 % (11.5-14.5); WHITE BLOOD COUNT 6.5 10^3/ul (4.8-10.8)
[2017-01-31 05:25] LABS: POTASSIUM 3.6 mmol/L (3.5-5.1)
[2017-01-31] MEDS: D5-LR + KCL 20 MEQ 1,000 ML IV SCH (05:26)
[2017-01-31 05:28] LABS: CREATININE 0.62 mg/dl (0.44-1.00)
[2017-01-31 05:29] LABS: CALCIUM 8.9 mg/dl (8.4-10.2)
[2017-01-31 07:53] VITALS: BP 136/64; RESP 18
[2017-01-31] MEDS: FUROSEMIDE 20 MG TAB PO SCH (09:13)
[2017-01-31] MEDS: traMADol 50 MG TAB PO PRN (09:13)
[2017-01-31] MEDS: FLUOXETINE 10 MG CAP PO SCH (09:13)
--- NOTE | 2017-01-31 12:50 | CONS ---
DATE OF ADMISSION: 01/26/2017 DATE OF CONSULTATION: 01/26/2017 REQUESTING PHYSICIAN: Brian Vuong MD HISTORY OF PRESENT ILLNESS: This is a pleasant 56-year-old female with past medical history of depr ession, history of alcohol abuse in remission for the past 20 years, mood disorder, who has had pers istent postmenopausal bleeding and large predominant solid adnexal mass and was seen and evaluated b y [employer] GENERATOR OPERATOR, [employer] oncologist, Dr. Vuong as outpatient, and the patient was admitted for elective tota l laparoscopic hysterectomy with bilateral salpingo-oophorectomy after discussing the mode of the tr eatment and the surgery and discussing the risk and benefits of the surgery with the patient and sig stacia a consent. The patient was taken to OR on 01/26/2017 and had total laparoscopic hysterectomy wi th bilateral salpingo-oophorectomy and bilateral ureteral dissection and repositioned in laparoscopi c pelvic and aortic lymph node dissection. The patient was taken to recovery room in stable conditi on and has been admitted to med/surg for further evaluation. Medical team was consulted for further evaluation and medical management. PAST MEDICAL AND SURGICAL HISTORY: 1. Depression. 2. History of alcohol abuse, in remission for the past 20 years. 3. Mood disorder. 4. Elevated CA-125. 5. Large pelvic mass. 6. Persistent postmenopausal bleeding. MEDICATIONS: At home: 1. Prozac 10 mg. 2. Lasix 20 mg. 3. Percocet 5/325. 4. Seroquel 100 mg p.o. at bedtime. 5. Tramadol 50 mg p.o. q.6 hours p.r.n. ALLERGIES: PENICILLIN. SOCIAL HISTORY: Positive for history of alcohol abuse, remission for the past 20 years, history of smoking, she smokes 1/2 a pack to 1 pack of cigarettes per day. She denies any history of drug abus e. FAMILY HISTORY: No history of coronary artery disease, diabetes mellitus, or hypertension. REVIEW OF SYSTEMS: She denies any fever, chills, weight gain, weight loss. No chest pain, palpitat ions, edema, orthopnea. No change in visual acuity, diplopia, photophobia. Positive for abdominal pain. No dysuria, hematuria, urgency, incontinence. The other 12 review of systems has been found to be negative. PHYSICAL EXAMINATION: VITAL SIGNS: Temperature 97.4, pulse 68, respirations 18, blood pressure 136/64, oxygen 99% on room air. GENERAL APPEARANCE: The patient is lying in bed comfortably without any distress. She is awake, al ert, oriented. Body habitus morbidly obese with BMI of 36.8. EYES AND ENT: Conjunctivae and lids are normal. Pupils are normal. Extraocular normal. Hearing g rossly normal. Lips, teeth, and gums are normal. Oral mucosa mildly dry. NECK: Supple. Trachea is midline. No lymphadenopathy. RESPIRATORY: Effort is normal. Clear to auscultate bilaterally. CARDIOVASCULAR: Normal S1, S2. Regular rhythm and rate. No murmur, no bruits, no edema. Peripher al pulses, radial pulses palpable. Cap refill is normal. CHEST: Normal expansion of thorax during inspiration. GASTROINTESTINAL: Abdomen is status post abdominal surgery. The surgical site is in dry dressing. There is evidence of serosanguineous bleeding, no active bleeding. Bowel sounds are present. No g uarding, no rebound. GENITOURINARY: Deferred. MUSCULOSKELETAL: Upper and lower extremities within normal limits. Full range of motion. NEUROLOGIC: Cranial nerves II through XII are grossly intact. PSYCHIATRIC: She is awake, alert, oriented. LABORATORY WORK: WBC 6.5, hemoglobin 11.3, hematocrit 34.2, platelets 199. Sodium 142, potassium 3 .6, chloride 103, bicarbonate 31, BUN 13, creatinine 0.62, glucose 97, calcium 8.9. ASSESSMENT AND PLAN: 1. Large pelvic mass with elevated CA-125/endometrial cancer, final pathology pending. The patient is status post total laparoscopic hysterectomy and bilateral salpingo-oophorectomy and laparoscopic pelvic and aortic lymph node dissection. 2. Adnexal fibroma with urethral stricture. The patient is as above. Status post bilateral ureter al dissection and repositioning and laparoscopic pelvic and aortic lymph node dissection. Continue postop care. 3. Major depression. Continue Prozac. 4. History of alcohol abuse in remission. No active issues. 5. Mood disorder. Continue Seroquel. 6. History of chronic pain syndrome. Continue pain medication. 7. Morbid obesity. Diet and exercise was recommended. 8. For deep venous thrombosis prophylaxis, the patient is on sequential compression devices. 9. For gastrointestinal prophylaxis, we will place the patient on Pepcid. We will continue to monitor patient closely. Further recommendations, management, and treatment as per clinical course. Total amount of time was spent for evaluation of patient and consultation note: 40 minutes. Dictated By: BERNADETTE AGUILAR MD PN/NTS Conf#: [id number] DID#: [id number]
--- NOTE | 2017-01-31 13:09 | PN ---
Date/Time of Note Date/Time of Note DATE: 01/31/17 TIME: 13:07 Assessment/Plan VTE Prophylaxis VTE Prophylaxis Intervention: SCD's Lines/Catheters IV [facility] Type (from [facility] Saline Lock Urinary Cath still in place: No Assessment/Plan Chief Complaint/Hosp Course pelvic mass, endometrial cancer Problems: Assessment/Plan A- improved moblity P-hope to d/c 1-2 days but she is concerned about her house- PT ordered Subjective 24 Hr Interval Summary Free Text/Dictation S-More OOB and + flatus. O- Resp- clear CVS- NSR Abd- NT clean Ext NT minimal edema A- improved moblity P-hope to d/c 1-2 days but she is concerned about her house- PT ordered Exam/Review of Systems Vital Signs Vitals Vital Signs Date Time Temp Pulse Resp B/P Pulse Ox O2 Delivery O2 Flow Rate FiO2 01/31/17 07:53 97.4 68 18 136/64 99 01/30/17 20:00 2.0 Intake and Output 01/30/17 01/30/17 01/31/17 15:00 23:00 07:00 Intake Total 840 ml Output Total 700 ml Balance 140 ml Results Result Diagram: 01/31/17 0435 01/31/17 0435 Results 24 hrs Laboratory Tests Test 01/31/17 04:35 Anion Gap 12 Basophils # 0.0 Basophils % 0.6 Blood Urea Nitrogen 13 Calcium Level 8.9 Carbon Dioxide Level 31 Chloride Level 103 Creatinine 0.62 Eosinophils # 0.3 Eosinophils % 4.2 Glucose Level 97 Hematocrit 34.2 L Hemoglobin 11.3 L Lymphocytes # 2.3 Lymphocytes % 35.0 Mean Corpuscular Hemoglobin 31.0 Mean Corpuscular Hemoglobin Concent 33.0 Mean Corpuscular Volume 94.0 Mean Platelet Volume 10.5 H Monocytes # 0.6 Monocytes % 8.5 Neutrophils # 3.3 Neutrophils % 51.5 Nucleated Red Blood Cells # 0.0 Nucleated Red Blood Cells % 0.0 Platelet Count 199 Potassium Level 3.6 Red Blood Count 3.64 L Red Cell Distribution Width 12.2 Sodium Level 142 White Blood Count 6.5 Medications Medications Current Medications Potassium Cl/ Dextrose/Lact Ringer's (D5-Lr + KCl 20 Meq) 1,000 ml @ 50 mls/hr Q20H IV Last administered on 01/29/17 00:20; Admin Dose 50 MLS/HR; Start at 17:00 Ondansetron HCl (Zofran Inj) 4 mg Q6H PRN IV NAUSEA AND/OR VOMITING Last administered on 01/28/17 03:26; Admin Dose 4 MG; Start 01/26/17 at 17:00 Acetaminophen/ Hydrocodone Bitart ([place] (5/325)) 1 tab Q6H PRN PO PAIN Last administered on 01/31/17 09:29; Admin Dose 1 TAB; Start 01/26/17 at 17:00 Fluoxetine HCl (Prozac) 10 mg DAILY PO Last administered on 01/31/17 09:13; Admin Dose 10 MG; Start 01/27/17 at 13:30 Furosemide (Lasix) 20 mg DAILY PO Last administered on 01/31/17 09:13; Admin Dose 20 MG; Start 01/27/17 at 13:30 Quetiapine Fumarate (Seroquel) 100 mg HS PO Last administered on 01/29/17 21:38 ; Admin Dose 100 MG; Start 01/27/17 at 21:00 Acetaminophen (Tylenol Tab) 650 mg Q6H PRN PO PAIN AND OR ELEVATED TEMP; Start 01/28/17 at 11:00 Tramadol HCl (Ultram) 50 mg Q6H PRN PO PAIN LEVEL 4-6 Last administered on 21:19; Admin Dose 50 MG; Start 01/28/17 at 20:30 Morphine Sulfate (morphine) 2 mg Q8 PRN IV PAIN; Start 01/30/17 at 22:00 Famotidine (Pepcid) 20 mg DAILY PO ; Start 02/01/17 at 09:00 MOSES MAGUIRE MD Jan 31, 2017 13:08
[2017-01-31 19:25] VITALS: BP 155/71; RESP 18
[2017-01-31] MEDS: QUETIAPINE 100 MG TAB PO SCH (21:00)
[2017-02-01] MEDS: D5-LR + KCL 20 MEQ 1,000 ML IV SCH ×2 (01:26→21:26)
[2017-02-01] MEDS: traMADol 50 MG TAB PO PRN ×2 (02:20→12:37)
[2017-02-01 07:00] VITALS: BP 131/75; RESP 20
[2017-02-01] MEDS: FLUOXETINE 10 MG CAP PO SCH (08:57)
[2017-02-01] MEDS: FAMOTIDINE 20 MG TAB PO SCH (08:57)
[2017-02-01] MEDS: HYDROCODONE/APAP (5/325) TAB PO PRN ×2 (08:57→20:28)
[2017-02-01] MEDS: FUROSEMIDE 20 MG TAB PO SCH (08:57)
--- NOTE | 2017-02-01 14:22 | PN ---
Date/Time of Note Date/Time of Note DATE: 02/01/17 TIME: 14:18 Assessment/Plan VTE Prophylaxis VTE Prophylaxis Intervention: SCD's Lines/Catheters IV Catheter Type (from [facility]): Saline Lock Urinary Cath still in place: No Assessment/Plan Chief Complaint/Hosp Course ASSESSMENT AND PLAN: 1. Large pelvic mass with elevated CA-125/endometrial cancer, The patient is status post total laparoscopic hysterectomy and bilateral salpingo-oophorectomy final pathology pending. 2. Adnexal fibroma with urethral stricture. The patient is as above. Status post bilateral ureteral dissection and repositioning and laparoscopic pelvic and aortic lymph node dissection. Continue postop care. 3. Major depression. Continue Prozac. 4. History of alcohol abuse in remission. No active issues. 5. Mood disorder. Continue Seroquel. 6. History of chronic pain syndrome. Continue pain medication. 7. Morbid obesity. Diet and exercise was recommended. 8. For deep venous thrombosis prophylaxis, the patient is on sequential compression devices. 9. For gastrointestinal prophylaxis, we will place the patient on Pepcid. We will continue to monitor patient closely. Further recommendations, management, and treatment as per clinical course. Problems: Subjective 24 Hr Interval Summary Free Text/Dictation Patient has been having difficulty with ambulation Ambulate 10 feet with max assist Tolerating oral intake No nausea vomiting diarrhea Exam/Review of Systems Vital Signs Vitals Vital Signs Date Time Temp Pulse Resp B/P Pulse Ox O2 Delivery O2 Flow Rate FiO2 02/01/17 07:00 98.7 75 20 131/75 97 01/30/17 20:00 2.0 Intake and Output 01/31/17 01/31/17 02/01/17 15:00 23:00 07:00 Intake Total 1880 ml 200 ml Balance 1880 ml 200 ml Exam General: The patient is morbidly obese, Not in acute distress. HEENT: Atraumatic, normocephalic. The pupils are equal and round . Neck: Supple with full range of motion. Chest: Normal expansion of the thorax during inspiration Lungs: Clear to auscultation bilaterally Heart: Normal S1-S2, Regular rhythm and rate. Abdomen: Soft , nontender, nondistended , bowel sounds are present. Surgical site mildly erythematous , healing well Extremities: Normal to inspection, no edema no cyanosis Neurologic: Normal mental status,The patient is awake, alert and oriented . Results Result Diagram: 01/31/17 0435 01/31/17 0435 Medications Medications Current Medications Potassium Cl/ Dextrose/Lact Ringer's (D5-Lr + KCl 20 Meq) 1,000 ml @ 50 mls/hr Q20H IV Last administered on 01/29/17 00:20; Admin Dose 50 MLS/HR; Start at 17:00 Ondansetron HCl (Zofran Inj) 4 mg Q6H PRN IV NAUSEA AND/OR VOMITING Last administered on 01/28/17 03:26; Admin Dose 4 MG; Start 01/26/17 at 17:00 Acetaminophen/ Hydrocodone Bitart (Alpha (5/325)) 1 tab Q6H PRN PO PAIN Last administered on 02/01/17 08:57; Admin Dose 1 TAB; Start 01/26/17 at 17:00 Fluoxetine HCl (Prozac) 10 mg DAILY PO Last administered on 02/01/17 08:57; Admin Dose 10 MG; Start 01/27/17 at 13:30 Furosemide (Lasix) 20 mg DAILY PO Last administered on 02/01/17 08:57; Admin Dose 20 MG; Start 01/27/17 at 13:30 Quetiapine Fumarate (Seroquel) 100 mg HS PO Last administered on 01/29/17 21:38 ; Admin Dose 100 MG; Start 01/27/17 at 21:00 Acetaminophen (Tylenol Tab) 650 mg Q6H PRN PO PAIN AND OR ELEVATED TEMP; Start 01/28/17 at 11:00 Tramadol HCl (Ultram) 50 mg Q6H PRN PO PAIN LEVEL 4-6 Last administered on 12:37; Admin Dose 50 MG; Start 01/28/17 at 20:30 Morphine Sulfate (morphine) 2 mg Q8 PRN IV PAIN; Start 01/30/17 at 22:00 Famotidine (Pepcid) 20 mg DAILY PO Last administered on 02/01/17 08:57; Admin Dose 20 MG; Start 02/01/17 at 09:00 BERNADETTE AGUILAR MD Feb 01, 2017 14:22
[2017-02-01] MEDS ORDERED: ALBUTEROL HFA 8 GM INHALER INH ONE (14:30)
[2017-02-01] MEDS ORDERED: ALBUTEROL HFA 8 GM INHALER INH PRN (14:30)
[2017-02-01 19:00] VITALS: BP 118/56; RESP 20
[2017-02-01] MEDS: QUETIAPINE 100 MG TAB PO SCH (20:28)
[2017-02-02 05:09] LABS: ADD SCAN DIFF NO
[2017-02-02 05:23] LABS: BASOPHILS % 0.5 % (0.0-2.0); EOSINOPHILS # 0.3 10^3/ul (0.0-0.5); EOSINOPHILS % 4.3 % (0.0-7.0); HEMATOCRIT 33.4 % (37.0-47.0); HEMOGLOBIN 10.8 g/dl (12.0-16.0); LYMPHOCYTES # 2.2 10^3/ul (0.8-2.9); MEAN CORPUSCULAR HEMOGLOBIN 30.6 pg (29.0-33.0); MEAN CORPUSCULAR HGB CONC 32.3 g/dl (32.0-37.0); MEAN CORPUSCULAR VOLUME 94.6 fl (82.0-101.0); MEAN PLATELET VOLUME 10.3 fl (7.4-10.4); MONOCYTE # 0.5 10^3/ul (0.3-0.9); MONOCYTES % 8.5 % (0.0-11.0); NEUTROPHILS % 50.4 % (39.0-77.0); PLATELET COUNT 214 10^3/UL (140-415); RED BLOOD COUNT 3.53 10^6/ul (4.20-5.40); RED CELL DISTRIBUTION WIDTH 12.9 % (11.5-14.5)
[2017-02-02 05:25] LABS: POTASSIUM 3.5 mmol/L (3.5-5.1)
[2017-02-02 05:27] LABS: CREATININE 0.66 mg/dl (0.44-1.00)
[2017-02-02 05:28] LABS: CALCIUM 8.8 mg/dl (8.4-10.2); MAGNESIUM 1.9 mg/dl (1.7-2.5)
[2017-02-02 07:44] VITALS: BP 132/63; RESP 18
[2017-02-02] MEDS: traMADol 50 MG TAB PO PRN (09:12)
[2017-02-02] MEDS: FLUOXETINE 10 MG CAP PO SCH (09:13)
[2017-02-02] MEDS: FUROSEMIDE 20 MG TAB PO SCH (09:14)
[2017-02-02] MEDS: FAMOTIDINE 20 MG TAB PO SCH (09:14)
--- NOTE | 2017-02-02 11:12 | PDOCDIS ---
Discharge Instructions CONDITION Patient Condition: Stable HOME CARE INSTRUCTIONS: Diet Instructions: RegularSpecial Diet: mech soft ACTIVITY: Activity Restrictions: Slowly Increase Activity Rest between Activity Avoid heavy lifting Do not operate Machinery Do not operate Power Tool Avoid Heavy Housework Bathing Restrictions: Shower FOLLOW UP/APPOINTMENTS Appointments Follow up with PCP in one week Follow up with Dr. Vuong in 2 weeks BERNADETTE AGUILAR MD Feb 02, 2017 11:12
[2017-02-02] MEDS ORDERED: FAMO20TA18 PO (11:15)
[2017-02-02] MEDS ORDERED: ALBU18HF INH (11:15)
[2017-02-02] MEDS ORDERED: ADV25050 INHALATION (11:15)
[2017-02-02] MEDS ORDERED: LEVO500T72 PO (11:15)
[2017-02-02 11:28] LABS: AADO2 Arterial 25.1 mmHg (7.0-24.0); Allen Test ACCEPTAB; Arterial Base Excess 0.1 mmol/L (-3.0-3); Arterial COHb 0.1 % (0.0-3.0); Arterial Fraction of Oxyhgb 95.9 % (93.0-99.0); Arterial HCO3 23.1 mmol/L (22.0-26.0); Arterial MetHb 0.3 % (0.0-1.5); Arterial Total Hemglobin 12.9 g/dl (12.0-18.0); MODE ROOM AIR
--- NOTE | 2017-02-02 12:19 | DS ---
DATE OF ADMISSION: 01/26/2017 DATE OF DISCHARGE: 02/02/2017 ADMITTING PHYSICIAN: Dr. Brian Vuong This discharge summary is done on behalf of Dr. Vuong. SUPERVISOR OF WAY: Medical team. DISCHARGE DIAGNOSES: 1. Large pelvic mass, with elevated CA-125 endometrial cancer. The patient is status post laparosc opic hysterectomy and bilateral salpingo-oophorectomy. 2. Adnexal fibroma with urethral stricture. 3. Major depression. 4. History of alcohol abuse. In remission. 5. Mood disorder. 6. History of chronic pain syndrome. 7. Morbid obesity. MEDICATIONS: 1. Albuterol sulfate. 2. Pepcid. 3. Prozac. 4. Lasix. 5. Levaquin. 6. Percocet. 7. Seroquel. 8. Advair. 9. Tramadol. ALLERGIES: PENICILLIN. LABORATORY: Today WBC 6.0, hemoglobin 10.8, hematocrit 33.4, platelets 214. Sodium 145, potassium 3 .5, chloride 107, bicarbonate 30, BUN 18, creatinine 0.66, glucose 95, calcium 8.8, magnesium 1.9. HOSPITAL COURSE: This is a 56-year-old female with a past medical history of depression, history of alcohol abuse, in remission for the past 20 years, mood disorder and morbid obesity, who has had pe rsistent postmenopausal bleeding and a large predominantly solid adnexal mass. She was seen and eval uated by the [employer] oncologist, Dr. Vuong, as an outpatient. The patient had a discussion about treatment mode and after discussing the mode of the treatment, surgical intervention, and discussing the risks and benefits of the surgery, the patient was admitted to [facility] for elective laparoscopic hysterectomy with bilateral salpingo-oophorectomy. After signing a consent t he patient was taken to the OR on 01/26/2017 and had a laparoscopic hysterectomy with bilateral salp ingo-oophorectomy, bilateral ureteral dissection and repositioning, and laparoscopic pelvic and aort ic lymph node dissection. The patient was taken to the recovery room and was admitted to the oncolo floor, where the medical team was consulted. The patient was continued on her home medications o f Prozac, Lasix and Seroquel. Pain management was done by Dr. Vuong. The patient was seen and e valuated by physical therapy. Wound care was done by Dr. Vuong. Postoperatively, the patient wa s placed on IV antibiotics. The patient has been afebrile. The surgical site is healing well. The patient has a history of asthma and was started on ProAir HFA and has not had any wheezing during t his course of hospitalization. The patient does have difficulty with breathing after ambulating mor e than 50 feet. ABG has been obtained. The patient will be set up for home oxygen, if she qualifie s. The result of the biopsy and pathology was discussed with the patient, which will be discussed as an outpatient with Dr. Vuong in 2 weeks. At this time the patient is medically stable to be dis charged home. I have given her the option of transfer to a residential facility for further magalie atment, although she has refused, and she wants to be discharged home. I have consulted the case [facility] for home health care when the patient is discharged and they are working on it and hopefully t he patient will qualify to be discharged home with home health. CONDITION AT THE TIME OF DISCHARGE: Stable. VITAL SIGNS: Temperature 98.0, pulse 70, [id number], blood pressure 132/60, oxygen 96 to 97% roman m air. CONDITION: Stable. Dictated By: BERNADETTE ALEMAN/IRA Conf#: [id number] DID#: [id number]
== END 2017-02-02 17:30 | disposition home health service (06) | DRG 741 ==
LOC: REC 08:08 → MS1 19:10
PROC: 0UTC0ZZ Resection of Cervix, Open Approach (ICD-10-PCS; 2017-01-26)
PROC: 0UT70ZZ Resection of Bilateral Fallopian Tubes, Open Approach (ICD-10-PCS; 2017-01-26)
PROC: 0UT20ZZ Resection of Bilateral Ovaries, Open Approach (ICD-10-PCS; 2017-01-26)
PROC: 07BC0ZX Excision of Pelvis Lymphatic, Open Approach, Diagnostic (ICD-10-PCS; 2017-01-26)
PROC: 0TS80ZZ Reposition Bilateral Ureters, Open Approach (ICD-10-PCS; 2017-01-26)
PROC: 07BD0ZX Excision of Aortic Lymphatic, Open Approach, Diagnostic (ICD-10-PCS; 2017-01-26)
PROC: 0UT90ZZ Resection of Uterus, Open Approach (ICD-10-PCS; principal; 2017-01-26 10:30)
DX: C54.1 Malignant neoplasm of endometrium (principal); E66.9 Obesity, unspecified; F32.9 Major depressive disorder, single episode, unspecified; D28.7 Benign neoplasm of other specified female genital organs; N95.0 Postmenopausal bleeding; F17.210 Nicotine dependence, cigarettes, uncomplicated; Z68.36 Body mass index [BMI] 36.0-36.9, adult; R20.9 Unspecified disturbances of skin sensation; J45.909 Unspecified asthma, uncomplicated
CPT/HCPCS: 36600; 80048; 80053; 81001; 81003; 82803; 83735; 85025; 85610; 85730; 86304; 86850; 86900; 86901; 86920; 87086; 88104; 88305; 88307; 88309; 88331; 94664; 97116; 97164; 97530; J0330; J0360; J0690; J1100; J1170; J1885; J1956; J2250; J2270; J2274; J2370; J2405; J2710; J2765; J3010; J3480

== ENCOUNTER 2017-02-06 20:11 | Emergency (ER) | payer BC ==
[~2017-02-06] VITALS: Ht 167.6 cm; Wt 105.4 kg
[~2017-02-06 20:11] MED LIST changes: +ADV25050 INHALATION; +ALBU18HF INH; +FAMO20TA18 PO; +FLUO10CA17 PO; +FURO20TA3 PO; +LEVO500T72 PO; +OXYC-279 PO; +QUET100T32 PO; -ROCURONIUM 50 MG INJ ONE; +TRAM-40 PO
[2017-02-06 21:18] VITALS: Ht 167.6 cm; Wt 105.4 kg
[2017-02-06] MEDS ORDERED: SOD CHLORIDE 0.9% 500 ML IV STA (21:37)
[2017-02-06 21:50] VITALS: BP 129/87; PULSE 69; RESP 15; TEMP 98.1
[2017-02-06 21:54] LABS: ADD SCAN DIFF NO
[2017-02-06 21:58] LABS: BASOPHILS % 0.4 % (0.0-2.0); EOSINOPHILS # 0.2 10^3/ul (0.0-0.5); EOSINOPHILS % 3.2 % (0.0-7.0); LYMPHOCYTES # 2.5 10^3/ul (0.8-2.9); MEAN CORPUSCULAR HEMOGLOBIN 30.4 pg (29.0-33.0); MEAN CORPUSCULAR HGB CONC 32.4 g/dl (32.0-37.0); MEAN CORPUSCULAR VOLUME 93.7 fl (82.0-101.0); MEAN PLATELET VOLUME 9.9 fl (7.4-10.4); MONOCYTE # 0.6 10^3/ul (0.3-0.9); MONOCYTES % 7.6 % (0.0-11.0); NEUTROPHILS % 54.4 % (39.0-77.0); PLATELET COUNT 291 10^3/UL (140-415); RED BLOOD COUNT 3.95 10^6/ul (4.20-5.40); RED CELL DISTRIBUTION WIDTH 12.4 % (11.5-14.5); WHITE BLOOD COUNT 7.4 10^3/ul (4.8-10.8)
[2017-02-06 22:05] LABS: INR 1.16; PROTIME 14.8 Sec (12.2-14.2); PT RATIO 1.2
[2017-02-06 22:06] LABS: ALBUMIN 3.5 g/dl (3.3-4.9); PARTIAL THROMBOPLASTIN TIME 28.8 Sec (25.0-35.0); POTASSIUM 3.3 mmol/L (3.5-5.1)
[2017-02-06 22:09] LABS: ALBUMIN/GLOBULIN RATIO 1.29; CALCIUM 9.1 mg/dl (8.4-10.2); CREATININE 0.63 mg/dl (0.44-1.00); TOTAL PROTEIN 6.2 g/dl (6.1-8.1)
[2017-02-06] MEDS ORDERED: FURO20TA3 PO (22:17)
[2017-02-06 23:15] LABS: ADD UMIC YES; URINE BILIRUBIN (Dip) 1+ (NEGATIVE); URINE BLOOD (Dip) 3+ (NEGATIVE); URINE COLOR YELLOW (YELLOW); URINE GLUCOSE (Dip) NEGATIVE (NEGATIVE); URINE KETONES (Dip) TRACE (NEGATIVE); URINE LEUKOCYTE ESTERASE (Dip) TRACE (NEGATIVE); URINE NITRITE (Dip) NEGATIVE (NEGATIVE); URINE TOTAL PROTEIN (Dip) 1+ (NEGATIVE); URINE UROBILINOGEN (Dip) 0.2 E.U./dL (0.1-1.0)
[2017-02-06 23:37] LABS: ICTOTEST NEGATIVE (NEGATIVE)
[2017-02-06 23:38] LABS: BACTERIA,URINE MODERATE; SQUAMOUS EPITHELIAL CELL,UR MODERATE
--- NOTE | 2017-02-06 23:48 | RADRPT ---
PROCEDURE: CT ABDOMEN/PELVIS WITHOUT CONTRAST CLINICAL INDICATION: 56-year-old female with vaginal bleeding. The the patient has a history of r ecent hysterectomy January 26, 2017. TECHNIQUE: The study was performed utilizing a GE Zol[employer]peed VCT 64-slice CT scanner. Direct axia l sections were obtained through the abdomen and pelvis without the use of intravenous contrast mate rial. Sagittal and coronal reformations were obtained. Automated exposure control and iterative justin nstruction techniques were utilized for this examination. The [facility] CTD/vol = 22.6 mGy; Total Exam DLP = 1240.7 mGy-cm. COMPARISON: None. FINDINGS: The lung bases are unremarkable. There is no evidence for significant pleural effusion. The liver has a normal size and contour without focal areas of abnormal density. No intrahepatic nor extrahepa tic biliary ductal dilatation is seen. Surgical clips are present within the gallbladder fossa from prior cholecystectomy. The pancreas is without areas of abnormal attenuation. The spleen is identi fied and has a normal size without abnormal density. The adrenal glands are unremarkable. The kidney s are without abnormal density. No hydroureteronephrosis nor nephroureterolithiasis is evident. The urinary bladder contains urine. There is no evidence for bowel obstruction. There is a bilobed fluid collection within the ventral pelvic wall measuring approximately 7.6 x 3.4 x 3.6 cm most likely re presenting a postoperative seroma. Surgical clips are seen within the pelvis. The uterus is not vi sualized consistent with hysterectomy. There is mild surrounding pelvic infiltration and trace fluid most likely postoperative in nature. The aortoiliac vessels are without aneurysmal dilatatio n. The osseous structures are intact. IMPRESSION: 1. Bilobed fluid collection within the lower ventral pelvic wall consistent with a postoperative se nick. 2. Multiple surgical clips within the pelvis what is mild surrounding inflammatory changes and trac e fluid consistent with recent hysterectomy. 3. Status post cholecystectomy. .Rishabh Islas MD, MD Date Time Electronically viewed and signed by .Rishabh Islas MD, on 02/06/2017 23:47 .M/
--- NOTE | 2017-02-06 23:59 | ERD ---
ER Documentation Chief Complaint Date/Time DATE: 02/06/17 TIME: 23:58 Chief Complaint VAG BLEED TODAY. S/P HYSTERECTOMY 01/26 DENIES FEVERS HPI Annual female status post x-ray. A few weeks ago. Comes in vaginal bleeding today. She said she was spotting. Denies any pain. Denies any fevers or chills. Denies any other current complaints. ROS All systems reviewed and are negative except as per history of present illness. Medications Home Meds Active Scripts Levofloxacin* (Levaquin*) 500 Mg Tablet, 500 MG PO DAILY for 5 Days, TAB Prov:BERNADETTE AGUILAR MD 02/02/17 Famotidine* (Famotidine*) 20 Mg Tablet, 20 MG PO DAILY, #30 TAB Prov:BERNADETTE AGUILAR MD 02/02/17 Albuterol Sulfate* (Ventolin HFA*) 18 Gm Hfa.aer.ad, 2 PUFF INH Q4H RESP THERAPY Y for SHORTNESS OF BREATH for 30 Days Prov:BERNADETTE AGUILAR MD 02/02/17 Reported Medications Furosemide* (Furosemide*) 20 Mg Tablet, 20 MG PO DAILY, #60 TAB 02/06/17 Tramadol Hcl* (Ultram*) 50 Mg Tablet, 50 MG PO Q6H Y for PAIN, TAB 01/26/17 Discontinued Reported Medications Quetiapine Fumarate* (Quetiapine Fumarate*) 100 Mg Tablet, 100 MG PO HS, TAB 01/26/17 Furosemide* (Furosemide*) 20 Mg Tablet, PO DAILY, #60 TAB 01/26/17 Fluoxetine Hcl* (Fluoxetine Hcl*) 10 Mg Capsule, PO DAILY, CAP 01/26/17 Oxycodone HCl/Acetaminophen (Percocet 5-325 mg Tablet) 1 Each Tablet, 1 EACH PO DAILY Y for PAIN, TAB 01/26/17 Discontinued Scripts Salmeterol Xinaf/Fluticasone* (Advair*) 250-50 Diskus Inhaler, 1 INH INHALATION BID, #1 INHALER Prov:BERNADETTE AGUILAR MD 02/02/17 Allergies Allergies: Coded Allergies: Penicillins (Verified Allergy, Severe, COMA, 02/06/17) PMhx/Soc History of Surgery: Yes (GALL BLADDER, HYSTERECTOMY) Anesthesia Reaction: No Hx Neurological Disorder: No Hx Respiratory Disorders: Yes (copd-states she doesnt require oxygen) Hx Cardiac Disorders: Yes (s/p stroke and CT 7 years ago) Hx Psychiatric Problems: No Hx Miscellaneous Medical Probl: Yes (stroke, COPD, CT, gallbladder) Hx Alcohol Use: No Hx Substance Use: No Hx Tobacco Use: Yes Smoking Status: Current every day smoker Physical Exam Vitals Vital Signs Date Time Temp Pulse Resp B/P Pulse Ox O2 Delivery O2 Flow Rate FiO2 02/06/17 21:50 98.1 69 15 129/87 99 Room Air 02/06/17 21:18 98.8 98 20 140/88 100 Physical Exam Const: [] Head: Atraumatic Eyes: Normal Conjunctiva ENT: Normal External Ears, Nose and Mouth. Neck: Full range of motion..~ No meningismus. Resp: Clear to auscultation bilaterally Cardio: Regular rate and rhythm, no murmurs Abd: Soft, non tender, non distended. Normal bowel sounds Skin: No petechiae or rashes Back: No midline or flank tenderness Ext: No cyanosis, or edema Neur: Awake and alert Psych: Normal Mood and Affect Result Diagram: 02/06/17214802/06/172148 Results 24 hrs Laboratory Tests Test 02/06/17 21:49 02/06/17 22:30 Activated Partial Thromboplast Time 28.8Sec Alanine Aminotransferase (ALT/SGPT) 25IU/L Albumin 3.5g/dl Albumin/Globulin Ratio 1.29 Alkaline Phosphatase 67IU/L Anion Gap 13 Aspartate Amino Transf (AST/SGOT) 16IU/L Basophils # 0.010^3/ul Basophils % 0.4% Blood Urea Nitrogen 16mg/dl Calcium Level 9.1mg/dl Carbon Dioxide Level 29mmol/L Chloride Level 105mmol/L Creatinine 0.63mg/dl Direct Bilirubin 0.00mg/dl Eosinophils # 0.210^3/ul Eosinophils % 3.2% Globulin 2.70g/dl Glucose Level 84mg/dl Hematocrit 37.0% Hemoglobin 12.0g/dl INR International Normalized Ratio 1.16 Indirect Bilirubin 0.0mg/dl Lipase 66U/L Lymphocytes # 2.510^3/ul Lymphocytes % 34.0% Mean Corpuscular Hemoglobin 30.4pg Mean Corpuscular Hemoglobin Concent 32.4g/dl Mean Corpuscular Volume 93.7fl Mean Platelet Volume 9.9fl Monocytes # 0.610^3/ul Monocytes % 7.6% Neutrophils # 4.010^3/ul Neutrophils % 54.4% Nucleated Red Blood Cells # 0.010^3/ul Nucleated Red Blood Cells % 0.0/100WBC Platelet Count 42934^3/UL Potassium Level 3.3mmol/L Prothrombin Time 14.8Sec Prothrombin Time Ratio 1.2 Red Blood Count 3.9510^6/ul Red Cell Distribution Width 12.4% Sodium Level 144mmol/L Total Bilirubin 0.0mg/dl Total Protein 6.2g/dl White Blood Count 7.410^3/ul Urine Bacteria MODERATE Urine Bilirubin 1+ Urine Calcium Oxalate Crystals MODERATE Urine Clarity CLOUDY Urine Color YELLOW Urine Glucose NEGATIVE% Urine Hemoglobin 3+ Urine Ictotest NEGATIVE Urine Ketones TRACE Urine Leukocyte Esterase TRACE Urine Microscopic RBC 2-5/HPF Urine Microscopic WBC 0-2/HPF Urine Nitrite NEGATIVE Urine Specific Gilbert >=1.030 Urine Squamous Epithelial Cells MODERATE Urine Total Protein 1+ Urine Urobilinogen 0.2 E.U./dL Urine pH 6.0 Current Medications Medications (Trade) Dose Ordered Sig/Aaron Route PRN Reason Start Time Stop Time Status Last Admin Dose Admin Sodium Chloride (NS) 500 ml @ 500 mls/hr Q1H STAT IV 02/06/17 21:37 02/06/17 22:36 DC 02/06/17 21:52 Procedures/MDM CT shows postop seroma Medical decision-makin year female here for spotting postoperative and. At this point is clinically stable. She is well-appearing. She has serial negative abdominal exams. He will be discharged home. Follow-up in 8 hours for serial abdominal exams. Discussed all results with patient at bedside. Departure Diagnosis: Primary Impression: Vaginal bleeding Condition: Stable [place] AmberlyYovani Feb 06, 2017 23:58
== END 2017-02-07 00:37 | disposition home or self-care (01) ==
LOC: E/R 20:11
DX: N93.9 Abnormal uterine and vaginal bleeding, unspecified (principal); J44.9 Chronic obstructive pulmonary disease, unspecified; F17.210 Nicotine dependence, cigarettes, uncomplicated
CPT/HCPCS: 36415; 74176; 80053; 81001; 83690; 85025; 85610; 85730; 99285; J7040; 81003

== ENCOUNTER 2017-03-26 14:55 | Emergency (ER) | payer BC ==
[~2017-03-26] VITALS: Ht 170.2 cm; Wt 102.0 kg
[~2017-03-26 14:55] MED LIST changes: -ADV25050 INHALATION; -FLUO10CA17 PO; -OXYC-279 PO; -QUET100T32 PO
[2017-03-26 14:58] VITALS: Ht 170.2 cm; Wt 102.0 kg
--- NOTE | 2017-03-26 18:39 | ERD ---
ER Documentation Chief Complaint Date/Time DATE: 03/26/17 TIME: 18:37 Chief Complaint PAIN SURGICAL SITE & WOUND CHECK UNABLE TO CHANGE GAUZE DRESSING, HPI Patient is a 56-year-old female with no medical problems who presents with a wound check. She had a hysterectomy done on January 26 and has had an infection that started afterwards. She has been getting wound care. She has a nurse coming to the house. She has been doing packing to the wound but says that she was unable to pack it with a 4 x 4 recently because the wound is getting smaller. She did see her surgeon Dr. Monk on Monday. ROS All systems reviewed and are negative except as per history of present illness. Medications Home Meds Active Scripts Levofloxacin* (Levaquin*) 500 Mg Tablet, 500 MG PO DAILY for 5 Days, TAB Prov:BERNADETTE AGUILAR MD 02/02/17 Famotidine* (Famotidine*) 20 Mg Tablet, 20 MG PO DAILY, #30 TAB Prov:BERNADETTE AGUILAR MD 02/02/17 Albuterol Sulfate* (Ventolin HFA*) 18 Gm Hfa.aer.ad, 2 PUFF INH Q4H RESP THERAPY Y for SHORTNESS OF BREATH for 30 Days Prov:BERNADETTE AGUILAR MD 02/02/17 Reported Medications Furosemide* (Furosemide*) 20 Mg Tablet, 20 MG PO DAILY, #60 TAB 02/06/17 Tramadol Hcl* (Ultram*) 50 Mg Tablet, 50 MG PO Q6H Y for PAIN, TAB 01/26/17 Allergies Allergies: Coded Allergies: Penicillins (Verified Allergy, Severe, COMA, 02/06/17) PMhx/Soc History of Surgery: Yes (GALL BLADDER, HYSTERECTOMY) Anesthesia Reaction: No Hx Neurological Disorder: No Hx Respiratory Disorders: Yes (copd-states she doesnt require oxygen) Hx Cardiac Disorders: Yes (s/p stroke and [place] 7 years ago) Hx Psychiatric Problems: No Hx Miscellaneous Medical Probl: Yes (stroke, COPD, [place], gallbladder) Hx Alcohol Use: No Hx Substance Use: No Hx Tobacco Use: Yes Smoking Status: Current every day smoker FmHx Family History: No diabetes Physical Exam Vitals Vital Signs Date Time Temp Pulse Resp B/P Pulse Ox O2 Delivery O2 Flow Rate FiO2 03/26/17 14:58 99.2 97 18 145/78 97 Physical Exam Const: No acute distress Head: Atraumatic Eyes: Normal Conjunctiva ENT: Normal External Ears, Nose and Mouth. Neck: Full range of motion..~ No meningismus. Resp: Clear to auscultation bilaterally Cardio: Regular rate and rhythm, no murmurs Abd: Soft, non tender, non distended. Normal bowel sounds Skin: Wound to the lower mid abdomen, there is no surrounding cellulitis or abscess formation, there is a packing in place Back: No midline or flank tenderness Ext: No cyanosis, or edema Neur: Awake and alert Psych: Normal Mood and Affect Procedures/MDM Smoking Cessation Therapy: Pt. was lectured for greater than 3 minutes on the health risks of continued smoking and the benefits of cessation. Patient is a 56-year-old female who presents for a wound check. I do not see any signs of infection at this time. There is no sign of abscess. I told her that if she cannot get the 4 x 4 into the space that I would not recommend her trying to force this in. The wound is likely healing and that is why the packing has become hard to place. I did remove the current packing and told her that this could heal from secondary intention. The patient should return for any worsening symptoms. I believe outpatient management is appropriate. I do not believe she requires further workup or admission to the hospital at this time. Departure Diagnosis: Primary Impression: Encounter for wound re-check Condition: Fair Patient Instructions: Wound Check, Lac F/U (No Infection) Referrals: MATTHEW SERRATO MD (PCP) Additional Instructions: Call your primary care doctor TOMORROW for an appointment during the next 1 WEEK.Tell the legal administrative secretary that you were referred from this facility.See the doctor sooner or return here if your condition worsens before your appointment time. ABRIL CARRILLO MD Mar 26, 2017 18:39
== END 2017-03-26 17:00 | disposition home or self-care (01) ==
LOC: FTE 14:55
DX: Z48.01 Encounter for change or removal of surgical wound dressing (principal); J44.9 Chronic obstructive pulmonary disease, unspecified; F17.210 Nicotine dependence, cigarettes, uncomplicated
CPT/HCPCS: 99281